=== PATIENT | female | born 1995 | race Asian ===

== ENCOUNTER 2022-02-15 09:54 | Emergency (ER) | payer SELFPAY ==
[~2022-02-15] VITALS: Ht 157.4 cm; Wt 40.8 kg
[2022-02-15] MEDS ORDERED: PROVENTIL HFA6.7 GM PO (10:47)
[2022-02-15] MEDS ORDERED: PREDNISONE50 MG PO (10:47)
== END 2022-02-15 12:10 | disposition home or self-care (01) ==
LOC: ED 09:54
DX: J45.901 Unspecified asthma with (acute) exacerbation (principal)